=== PATIENT | male | born 1960 | race African-American/Black ===

== ENCOUNTER 2018-08-07 16:13 | Inpatient (IN) | payer MEDICAID ==
[~2018-08-07] VITALS: Ht 162.6 cm; Wt 66.9 kg
[~2018-08-07 16:13] MED LIST: AMBIEN10 MG ORAL; CIPRODEX OTIC7.5 M1 RIGHT EAR; COLACE100 MG ORAL; IBUPROFEN600 MG ORAL; KEFLEX500 MG ORAL; NAPROXEN500 M2 ORAL; NKM; NORCO 5-325 TA1 EACH ORAL; PEPCID20 MG ORAL; TYLENOL EXTRA500 MG ORAL; TYLENOL650 MG/20. ORAL; VENTOLIN HFA18 GM INH
[2018-08-07 16:30] VITALS: BP 139/78
--- NOTE | 2018-08-07 16:30 | NUR ---
ED Nurse Note: AMBULATED IN TO ER DUE TO SOB X3 DAYS. LABOR BREATHING NOTED BUT 100% IN RA. A/OX4. DENIES CP.
[2018-08-07] MEDS ORDERED: Solu-MEDROL 125mg Inj IVP ONE (16:45)
[2018-08-07] MEDS ORDERED: Ipratropium 0.02% Inh Soln 2.5ml UD HHN ONE (16:45)
[2018-08-07] MEDS ORDERED: Acetaminophen 500mg (ES) tab ORAL ONE (16:45)
[2018-08-07] MEDS ORDERED: UNOBMED (16:55)
--- NOTE | 2018-08-07 16:56 | Emergency Room Report ---
History of Present Illness General Chief Complaint: Dyspnea/Respdistress Source: Patient Present Illness HPI Patient presents with severe dyspnea and wheezing. He's felt feverish but not documented any fever. He still smokes cigarettes. He's not producing any colored phlegm at this time. He's complaining about pain in his legs that he can't walk at this time also. He gets easily out of breath less than a half a block. He's most using an inhaler but doesn't have one at this time. This is one of the worst attack he's ever had. Never intubated. He denies having an inhaler. He is just one in the past. No chest pain, palpitations, nausea, vomiting, diarrhea, dysuria, abdominal pain , depression, visual changes, headache. Residual numbness after hernia surgery. Allergies: Coded Allergies: IBUPROFEN (Unverified Allergy, 07/17/13) Patient History Past Medical History: see triage record Past Surgical History: other - hernia Social History: Reports: smoking, drug use Social History Narrative Lives with friends Reviewed Nursing Documentation: PMH: Agreed; PSxH: Agreed Nursing Documentation-PMH Past Medical History: No History, Except For Hx Cardiac Problems: No Hx Hypertension: No Hx Pacemaker: No Hx Asthma: No Hx COPD: Yes Hx Diabetes: No Hx Cancer: No Hx Gastrointestinal Problems: Yes - Ruptured hernia Hx Dialysis: No Hx Neurological Problems: No Hx Cerebrovascular Accident: No Review of Systems All Other Systems: negative except mentioned in HPI Physical Exam Vital Signs Date Time Temp Pulse Resp B/P (MAP) Pulse Ox O2 Delivery O2 Flow Rate FiO2 08/07/18 16:23 98.2 107 16 122/68 100 Room Air Sp02 EP Interpretation: reviewed, normal General Appearance: alert, GCS 15, mild distress Head: normocephalic Eyes: bilateral eye PERRL, bilateral eye EOMI, bilateral eye Scleral Injection ENT: moist mucus membranes Neck: supple Respiratory: wheezing, expiration, inspiration Cardiovascular #1: no edema, tachycardia Cardiovascular #2: 2+ radial (R) Gastrointestinal: normal inspection, normal bowel sounds, non tender, no mass, non-distended Rectal: heme negative stool Musculoskeletal: back normal, gait/station normal, normal range of motion Neurologic: alert, oriented x3, grossly normal Psychiatric: anxious Skin: normal inspection, warm/dry Medical Decision Making Diagnostic Impression: Primary Impression: COPD exacerbation Additional Impressions: Anemia Qualified Codes: D64.9 - Anemia, unspecified Cocaine abuse Pancreatitis Qualified Codes: K85.90 - Acute pancreatitis without necrosis or infection, unspecified Elevated lactic acid level ER Course Patient presents with severe dyspnea. Differential includes asthma, COPD exacerbation, pneumonia, acute myocardial infarction, substance abuse, pulmonary embolus amongst others. Exam is against pulmonary embolus. Evaluation will be with EKG, chest x-ray and labs. Patient be treated with methylprednisolone and breathing treatments. Patient will be given Tylenol for his leg pain. Considerations regarding this included electrolyte imbalance amongst others. EKG without injury. Chest x-ray COPD. Labs significant for anemia. Tox screen positive for cocaine. Initial lactic acid is elevated. Elevated lipase without abdominal pain. Last hemoglobin in 2016 was normal. No evidence of active bleeding. Hemodynamically stable his blood is not ordered. Improved but still with wheezes. Repeat breathing treatments. Patient is ambulatory with a limp of the left leg. Patient admitted to medical floor continued breathing treatments and reevaluation Dr. Barbosa. Laboratory Tests Test 08/07/18 16:45 08/07/18 17:45 08/07/18 17:50 White Blood Count 9.7 K/UL (4.8-10.8) Red Blood Count 3.63 M/UL (4.70-6.10) L Hemoglobin 7.7 G/DL (14.2-18.0) L Hematocrit 27.2 % (42.0-52.0) L Mean Corpuscular Volume 75 FL (80-99) L Mean Corpuscular Hemoglobin 21.3 PG (27.0-31.0) L Mean Corpuscular Hemoglobin Concent 28.4 G/DL (32.0-36.0) L Red Cell Distribution Width 18.8 % (11.6-14.8) H Platelet Count 237 K/UL (150-450) Mean Platelet Volume 4.7 FL (6.5-10.1) L Neutrophils (%) (Auto) % (45.0-75.0) Lymphocytes (%) (Auto) % (20.0-45.0) Monocytes (%) (Auto) % (1.0-10.0) Eosinophils (%) (Auto) % (0.0-3.0) Basophils (%) (Auto) % (0.0-2.0) Differential Total Cells Counted 100 Neutrophils % (Manual) 41 % (45-75) L Lymphocytes % (Manual) 46 % (20-45) H Monocytes % (Manual) 11 % (1-10) H Eosinophils % (Manual) 0 % (0-3) Basophils % (Manual) 2 % (0-2) Band Neutrophils 0 % (0-8) Platelet Estimate Adequate Platelet Morphology Normal Polychromasia 2+ Hypochromasia 3+ Anisocytosis 2+ Microcytosis 1+ Target Cells 1+ Prothrombin Time 10.7 SEC (9.30-11.50) Prothrombin Time INR 1.0 (0.9-1.1) PTT 23 SEC (23-33) Sodium Level 136 MMOL/L (136-145) Potassium Level 3.9 MMOL/L (3.5-5.1) Chloride Level 103 MMOL/L (98-107) Carbon Dioxide Level 23 MMOL/L (21-32) Anion Gap 10 mmol/L (5-15) Blood Urea Nitrogen 6 mg/dL (7-18) L Creatinine 0.9 MG/DL (0.55-1.30) Estimate Glomerular Filtration Rate > 60 mL/min (>60) Glucose Level 92 MG/DL (74-106) Lactic Acid Level 2.10 mmol/L (0.4-2.0) H Pending Calcium Level 8.9 MG/DL (8.5-10.1) Magnesium Level 1.9 MG/DL (1.8-2.4) Total Bilirubin 0.2 MG/DL (0.2-1.0) Aspartate Amino Transferase (AST) 46 U/L (15-37) H Alanine Aminotransferase (ALT) 30 U/L (12-78) Alkaline Phosphatase 71 U/L (46-116) Total Creatine Kinase 276 U/L (26-308) Pro-B-Type Natriuretic Peptide 140 pg/mL (0-125) H Total Protein 8.1 G/DL (6.4-8.2) Albumin 3.5 G/DL (3.4-5.0) Globulin 4.6 g/dL Albumin/Globulin Ratio 0.8 (1.0-2.7) L Lipase 789 U/L (73-393) H Urine Color Pale yellow Urine Appearance Clear Urine pH 6 (4.5-8.0) Urine Specific [place] 1.010 (1.005-1.035) Urine Protein 1+ (NEGATIVE) H Urine Glucose (UA) Negative (NEGATIVE) Urine Ketones Negative (NEGATIVE) Urine Blood Negative (NEGATIVE) Urine Nitrite Negative (NEGATIVE) Urine Bilirubin Negative (NEGATIVE) Urine Urobilinogen Normal MG/DL (0.0-1.0) Urine Leukocyte Esterase Negative (NEGATIVE) Urine RBC 0-2 /HPF (0 - 0) H Urine WBC 0 /HPF (0 - 0) Urine Squamous Epithelial Cells None /LPF (NONE/OCC) Urine Bacteria None /HPF (NONE) Urine Opiates Screen Negative (NEGATIVE) Urine Barbiturates Screen Negative (NEGATIVE) Phencyclidine (PCP) Screen Negative (NEGATIVE) Urine Amphetamines Screen Negative (NEGATIVE) Urine Benzodiazepines Screen Negative (NEGATIVE) Urine Cocaine Screen Positive (NEGATIVE) H Urine Marijuana (THC) Screen Positive (NEGATIVE) H Microbiology Date/Time Source Procedure Growth Status 08/07/18 17:50 Nasal Nares Influenza Types A,B Antigen (MARCO A) - Final Complete EKG Diagnostic Results Rate: tachycardiac Rhythm: NSR ST Segments: no acute changes Rhythm Strip Diag. Results EP Interpretation: yes Rhythm: no PVC's, no ectopy, other - Sinus tachycardia Chest X-Ray Diagnostic Results Chest X-Ray Diagnostic Results : Chest X-Ray Ordered: Yes # of Views/Limited/Complete: 1 View Indication: Shortness of Breath EP Interpretation: Yes Interpretation: no consolidation, no effusion, no pneumothorax, other - nodule R and scarring/COPD Last Vital Signs Date Time Temp Pulse Resp B/P (MAP) Pulse Ox O2 Delivery O2 Flow Rate FiO2 08/08/18 04:05 98.6 80 20 158/94 (115) 97 08/07/18 21:00 Room Air 08/07/18 17:57 21 Status: improved Disposition: ADMITTED INPATIENT Condition: Serious Iker Moffett MD Aug 07, 2018 16:56
[2018-08-07 17:07] LABS: HEMATOCRIT 27.2 % (42.0-52.0); HEMOGLOBIN 7.7 G/DL (14.2-18.0); MEAN CORPUSCULAR VOLUME 75 FL (80-99); PLATELET COUNT 237 K/UL (150-450); RED BLOOD COUNT 3.63 M/UL (4.70-6.10); RED CELL DISTRIBUTION WIDTH 18.8 % (11.6-14.8); WHITE BLOOD COUNT 9.7 K/UL (4.8-10.8)
[2018-08-07] MEDS: Albuterol ud Inhalation HHN SCH ×3 (17:09→17:26)
[2018-08-07 17:18] LABS: ANION GAP 10 mmol/L (5-15); BLOOD UREA NITROGEN 6 mg/dL (7-18); CALCIUM 8.9 MG/DL (8.5-10.1); CARBON DIOXIDE 23 MMOL/L (21-32); CHLORIDE 103 MMOL/L (98-107); CREATININE 0.9 MG/DL (0.55-1.30); POTASSIUM 3.9 MMOL/L (3.5-5.1); SODIUM 136 MMOL/L (136-145)
--- NOTE | 2018-08-07 17:23 | Diagnostic Imaging Report ---
Indication: Shortness of breath Technique: One view of the chest Comparison: 06/14/2015 Findings: There is minimal atelectasis at the left lung base. Old calcified granuloma is seen in the right mid to lower lung No acute infiltrates, effusions, or congestion. Tortuous calcified aorta. Normal heart size. Upper mediastinum unremarkable. Impression: No acute process. Minimal left basilar atelectasis Old granulomatous disease in the right lung
[2018-08-07 17:28] LABS: ALANINE AMINOTRANSFERASE 30 U/L (12-78); ALBUMIN 3.5 G/DL (3.4-5.0); ALBUMIN/GLOBULIN RATIO 0.8 (1.0-2.7); ALKALINE PHOSPHATASE 71 U/L (46-116); ASPARTATE AMINO TRANSFERASE 46 U/L (15-37); BILIRUBIN,TOTAL 0.2 MG/DL (0.2-1.0); CREATINE KINASE 276 U/L (26-308)
--- NOTE | 2018-08-07 17:41 | NUR ---
ED Nurse Note: LACTIC REFLEX SENT DOWN TO THE LAB
[2018-08-07 18:04] LABS: APPEARANCE,URINE CLEAR; BILIRUBIN, URINE NEGATIVE (NEGATIVE); COLOR,URINE PALE YELLOW; GLUCOSE, URINE (UA) NEGATIVE (NEGATIVE); KETONES,URINE NEGATIVE (NEGATIVE); LEUKOCYTE ESTERASE ,URINE NEGATIVE (NEGATIVE); NITRITE,URINE NEGATIVE (NEGATIVE); PH,URINE 6 (4.5-8.0); PROTEIN,URINE 1+ (NEGATIVE); UROBILINOGEN,URINE NORMAL MG/DL (0.0-1.0)
--- NOTE | 2018-08-07 18:18 | NUR ---
ED Nurse Note: per SUSI that pt is not ready to go up yet.
--- NOTE | 2018-08-07 18:30 | NUR ---
ED Nurse Note: PER SUSI, NO BLOOD TRANSFSION FOR HGB 7.[address] MORALES IS AWARE
--- NOTE | 2018-08-07 18:42 | NUR ---
ED Nurse Note: ATTEMPTED TO GIVE TELEPHONE REPORT. PER JIMBO OH FROM [facility], SHE CANNOT TAKE THE REPORT AT THIS TIME.
--- NOTE | 2018-08-07 19:08 | NUR ---
HAND-OFF: Report given to JOHNNY DALY. NO S/S OF DISTRESS.
[2018-08-07] MEDS ORDERED: Nitroglycerin Subl 0.4mg tab SL PRN (19:40)
[2018-08-07] MEDS ORDERED: LORazepam Inj 2mg/ml 1ml IV PRN (19:40)
[2018-08-07] MEDS ORDERED: Albuterol/Ipratropium 3ml neb HHN PRN (19:40)
[2018-08-07] MEDS ORDERED: Promethazine/Codeine 5ml UD ORAL PRN (19:40)
[2018-08-07 20:00] VITALS: BP 136/83
--- NOTE | 2018-08-07 20:00 | NUR ---
NURSE NOTES: Pt received in stable condition. RR even unlabored. Weak and unsteady in gait due to pain radiating from legs downward, "feels like hot coals on my legs". Pt is on room air, IV site asymptomatic, patent, dressing intact. Pt is supine in bed. Bed in lowest position, locked, side rails up x 2. Call light within reach. will continue to monitor.
--- NOTE | 2018-08-07 20:30 | NUR ---
ED Nurse Note: Pt admitted to Med/Surg unit. All belongings taken with patient to floor. Showing no signs of respiratory or cardiac distress. VSS. Report given to oncoming nurse.
[2018-08-07] MEDS: Theophylline ER 100mg ORAL SCH (21:31)
[2018-08-07] MEDS: Heparin 5000 units/ml inj SUBQ SCH (21:33)
[2018-08-07] MEDS: Morphine Sulfate 2mg/ml Inj(IV/IM USE ONLY) IVP PRN (21:37)
[2018-08-07] MEDS: Piperacillin/Tazobactam 3.375 GM in D5W 110 ML IVPB SCH (22:02)
[2018-08-08] VITALS: BP 145/88
[2018-08-08] MEDS: Solu-MEDROL 125mg Inj IV SCH ×3 (00:50→12:42)
--- NOTE | 2018-08-08 01:00 | NUR ---
NURSE NOTES: Chest percussions done. Patient still unable to get sputum culture. Will reassess. Call light is at bedside.
[2018-08-08] MEDS: Morphine Sulfate 2mg/ml Inj(IV/IM USE ONLY) IVP PRN ×3 (01:54→19:43)
[2018-08-08 04:05] VITALS: BP 158/94
[2018-08-08] MEDS: Piperacillin/Tazobactam 3.375 GM in D5W 110 ML IVPB SCH ×3 (06:09→21:33)
--- NOTE | 2018-08-08 07:25 | NUR ---
NURSE NOTES: Report received from outgoing RN, rounds made. Patient sitting in semi-fowlers position in bed. No complains of pain, SOB on RA, NV. LAC heplock intact, site asymptomatic. Bed in lowest position, call light in reach. Will continue to monitor.
--- NOTE | 2018-08-08 07:32 | NUR ---
HAND-OFF: Report given to JOHNNY Aburto .
[2018-08-08 08:00] VITALS: BP 139/83
[2018-08-08] MEDS: Heparin 5000 units/ml inj SUBQ SCH ×2 (09:03→21:00)
[2018-08-08] MEDS: Theophylline ER 100mg ORAL SCH ×2 (09:03→21:22)
[2018-08-08 12:00] VITALS: BP 152/70
--- NOTE | 2018-08-08 13:15 | Consultation ---
History of Present Illness General Date patient seen: Aug 08, 2018 Chief Complaint: Dyspnea/Respdistress Present Illness HPI 58 year old male with hx of smoking, drug abuse, presented to ER with severe dyspnea and wheezing. He's felt feverish but not documented any fever. He still smokes cigarettes. He's complaining about pain in his legs that he can' t walk at this time also. Allergies: Coded Allergies: IBUPROFEN (Unverified Allergy, 07/17/13) Medication History Scheduled Ciprofloxacin Hcl/Dexameth (Ciprodex Otic Suspension), 5 DROP RIGHT EAR TWICE A DAY No Known Medications* (NKM - No Known Medications*), 0 ., (Reported) Scheduled PRN Acetaminophen* (Tylenol Extra Strength*), 500 MG ORAL Q6H PRN for Mild Pain/ Temp > 100.5 Miscellaneous Medications Unable to Obtain Medications (Unable To Obtain Meds), (Reported) Patient History Healthcare decision maker Resuscitation status Full Code Advanced Directive on File No Past Medical/Surgical History Past Medical/Surgical History: (1) Pancreatitis (2) Cocaine abuse Review of Systems All Other Systems: negative except mentioned in HPI Physical Exam General Appearance: cachetic Lines, tubes and drains: peripheral HEENT: normocephalic, atraumatic Neck: non-tender, normal inspection Respiratory/Chest: rhonchi - left, rhonchi - right Cardiovascular/Chest: normal peripheral pulses, normal rate Abdomen: normal bowel sounds Genitourinary/Rectal: normal genital exam Skin Exam: normal pigmentation Neurologic: studio owner II-XII grossly normal Last 24 Hour Vital Signs Date Time Temp Pulse Resp B/P (MAP) Pulse Ox O2 Delivery O2 Flow Rate FiO2 08/08/18 09:00 Room Air 08/08/18 08:43 94 16 Room Air 08/08/18 08:00 98.8 92 19 139/83 (101) 98 08/08/18 04:05 98.6 80 20 158/94 (115) 97 08/08/18 01:16 98.2 70 20 133/79 97 08/08/18 00:00 99.0 100 20 145/88 (107) 100 08/07/18 21:00 Room Air 08/07/18 20:00 98.3 100 20 136/83 (100) 100 08/07/18 17:57 102 20 100 Room Air 21 08/07/18 17:33 98.3 08/07/18 17:28 80 20 97 Room Air 21 08/07/18 17:14 85 22 95 Room Air 21 08/07/18 16:30 98.2 100 20 139/78 100 Room Air 08/07/18 16:30 100 16 Room Air 08/07/18 16:23 98.2 107 16 122/68 100 Room Air Intake and Output 08/07/18 08/08/18 19:00 07:00 Intake Total 1000 ml 110.0 ml Output Total 500 ml Balance 1000 ml -390.0 ml Intake IV Total 1000 ml 110.0 ml Output Urine Total 500 ml # Voids 2 Laboratory Tests Test 08/07/18 16:45 08/07/18 17:45 08/07/18 17:50 White Blood Count 9.7 K/UL (4.8-10.8) Red Blood Count 3.63 M/UL (4.70-6.10) L Hemoglobin 7.7 G/DL (14.2-18.0) L Hematocrit 27.2 % (42.0-52.0) L Mean Corpuscular Volume 75 FL (80-99) L Mean Corpuscular Hemoglobin 21.3 PG (27.0-31.0) L Mean Corpuscular Hemoglobin Concent 28.4 G/DL (32.0-36.0) L Red Cell Distribution Width 18.8 % (11.6-14.8) H Platelet Count 237 K/UL (150-450) Mean Platelet Volume 4.7 FL (6.5-10.1) L Neutrophils (%) (Auto) % (45.0-75.0) Lymphocytes (%) (Auto) % (20.0-45.0) Monocytes (%) (Auto) % (1.0-10.0) Eosinophils (%) (Auto) % (0.0-3.0) Basophils (%) (Auto) % (0.0-2.0) Differential Total Cells Counted 100 Neutrophils % (Manual) 41 % (45-75) L Lymphocytes % (Manual) 46 % (20-45) H Monocytes % (Manual) 11 % (1-10) H Eosinophils % (Manual) 0 % (0-3) Basophils % (Manual) 2 % (0-2) Band Neutrophils 0 % (0-8) Platelet Estimate Adequate Platelet Morphology Normal Polychromasia 2+ Hypochromasia 3+ Anisocytosis 2+ Microcytosis 1+ Target Cells 1+ Prothrombin Time 10.7 SEC (9.30-11.50) Prothromb Time International Ratio 1.0 (0.9-1.1) Activated Partial Thromboplast Time 23 SEC (23-33) Sodium Level 136 MMOL/L (136-145) Potassium Level 3.9 MMOL/L (3.5-5.1) Chloride Level 103 MMOL/L (98-107) Carbon Dioxide Level 23 MMOL/L (21-32) Anion Gap 10 mmol/L (5-15) Blood Urea Nitrogen 6 mg/dL (7-18) L Creatinine 0.9 MG/DL (0.55-1.30) Estimat Glomerular Filtration Rate > 60 mL/min (>60) Glucose Level 92 MG/DL (74-106) Lactic Acid Level 2.10 mmol/L (0.4-2.0) H 1.60 mmol/L (0.66-2.22) Calcium Level 8.9 MG/DL (8.5-10.1) Magnesium Level 1.9 MG/DL (1.8-2.4) Total Bilirubin 0.2 MG/DL (0.2-1.0) Aspartate Amino Transf (AST/SGOT) 46 U/L (15-37) H Alanine Aminotransferase (ALT/SGPT) 30 U/L (12-78) Alkaline Phosphatase 71 U/L (46-116) Total Creatine Kinase 276 U/L (26-308) Pro-B-Type Natriuretic Peptide 140 pg/mL (0-125) H Total Protein 8.1 G/DL (6.4-8.2) Albumin 3.5 G/DL (3.4-5.0) Globulin 4.6 g/dL Albumin/Globulin Ratio 0.8 (1.0-2.7) L Lipase 789 U/L (73-393) H Urine Color Pale yellow Urine Appearance Clear Urine pH 6 (4.5-8.0) Urine Specific [place] 1.010 (1.005-1.035) Urine Protein 1+ (NEGATIVE) H Urine Glucose (UA) Negative (NEGATIVE) Urine Ketones Negative (NEGATIVE) Urine Blood Negative (NEGATIVE) Urine Nitrite Negative (NEGATIVE) Urine Bilirubin Negative (NEGATIVE) Urine Urobilinogen Normal MG/DL (0.0-1.0) Urine Leukocyte Esterase Negative (NEGATIVE) Urine RBC 0-2 /HPF (0 - 0) H Urine WBC 0 /HPF (0 - 0) Urine Squamous Epithelial Cells None /LPF (NONE/OCC) Urine Bacteria None /HPF (NONE) Urine Opiates Screen Negative (NEGATIVE) Urine Barbiturates Screen Negative (NEGATIVE) Phencyclidine (PCP) Screen Negative (NEGATIVE) Urine Amphetamines Screen Negative (NEGATIVE) Urine Benzodiazepines Screen Negative (NEGATIVE) Urine Cocaine Screen Positive (NEGATIVE) H Urine Marijuana (THC) Screen Positive (NEGATIVE) H Microbiology Date/Time Source Procedure Growth Status 08/07/18 17:50 Nasal Nares Influenza Types A,B Antigen (MARCO A) - Final Complete Height (Feet): 5 Height (Inches): 4.00 Weight (Pounds): 147 Medications Current Medications Medications (Trade) Dose Ordered Sig/Valarie Route PRN Reason Start Time Stop Time Status Last Admin Dose Admin Albuterol/ Ipratropium (Albuterol/ Ipratropium) 3 ml Q4H PRN HHN dyspnea 08/07/18 19:40 08/12/18 19:39 Dextrose (Dextrose 50%) 25 ml Q30M PRN IV Hypoglycemia 08/07/18 19:41 09/06/18 19:40 Dextrose (Dextrose 50%) 50 ml Q30M PRN IV Hypoglycemia 08/07/18 19:41 09/06/18 19:40 Heparin Sodium (Porcine) (Heparin 5000 units/ml) 5,000 units EVERY 12 HOURS SUBQ 08/07/18 21:00 09/06/18 20:59 08/08/18 09:03 Lorazepam (Ativan 2mg/ml 1ml) 0.5 mg Q4H PRN IV For Anxiety 08/07/18 19:40 08/14/18 19:39 Methylprednisolone Sodium Succinate (Solu-MEDROL) 60 mg EVERY 6 HOURS IV 08/08/18 00:00 09/07/18 00:00 08/08/18 12:42 Morphine Sulfate (Morphine Sulfate) 2 mg Q4H PRN IVP severe pain 7-10 08/07/18 19:42 08/14/18 19:41 08/08/18 09:13 Nitroglycerin (Ntg) 0.4 mg Q5M X 3 DOSES PRN SL Prn Chest Pain 08/07/18 19:40 09/06/18 19:39 Ondansetron HCl (Zofran) 4 mg Q6H PRN IVP Nausea & Vomiting 08/07/18 19:40 09/06/18 19:39 Piperacillin Sod/ Tazobactam Sod 3.375 gm/Dextrose 110 ml @ 27.5 mls/hr EVERY 8 HOURS IVPB 08/07/18 21:00 08/14/18 20:59 08/08/18 06:09 Promethazine HCl/ Codeine (Phenergan with Codeine) 5 ml Q6H PRN ORAL cough 08/07/18 19:40 09/06/18 19:39 Temazepam (Restoril) 15 mg HSPRN PRN ORAL Insomnia 08/07/18 21:00 08/14/18 20:59 Theophylline ([place]) 100 mg EVERY 12 HOURS ORAL 08/07/18 21:00 09/06/18 20:59 08/08/18 09:03 Assessment/Plan Problem List: (1) Acute bronchitis ICD Codes: J20.9 - Acute bronchitis, unspecified SNOMED: 46249713 (2) COPD exacerbation ICD Codes: J44.1 - Chronic obstructive pulmonary disease with (acute) exacerbation SNOMED: 570191227 (3) Anemia ICD Codes: D64.9 - Anemia, unspecified SNOMED: 353658493 Qualifiers: Qualified Codes: D64.9 - Anemia, unspecified (4) Cocaine abuse ICD Codes: F14.10 - Cocaine abuse, uncomplicated SNOMED: 75265215 Assessment/Plan respiratory treat titrate fio2 iv steroids iv fluids check electrolytes social service Amado Baxter MD Aug 08, 2018 13:15
--- NOTE | 2018-08-08 13:30 | NUR ---
CASE MANAGEMENT:REVIEW 58 YR OLD MALE FROM HOME SOB SI: COPD EXACERBATION. ANEMIA. PANCREATITIS 98.3 107 16 122/68 100% ON RA H/H-7.7/27.2 LACTIC ACID+2.10 LIPASE+789 URINE(+) COCAINE AND THC IS: DUONEB HHN X3 IV SOLUMEDROL 1L NS BOLUS CXR : MED/SURG STATUS INTERQUAL CRITERIA MET
[2018-08-08 14:36] LABS: HEMATOCRIT 31.2 % (42.0-52.0); HEMOGLOBIN 8.8 G/DL (14.2-18.0); MEAN CORPUSCULAR VOLUME 75 FL (80-99); PLATELET COUNT 263 K/UL (150-450); RED BLOOD COUNT 4.15 M/UL (4.70-6.10); RED CELL DISTRIBUTION WIDTH 19.1 % (11.6-14.8); WHITE BLOOD COUNT 12.3 K/UL (4.8-10.8)
[2018-08-08 14:48] LABS: LACTATE DEHYDROGENASE 203 U/L (81-234)
[2018-08-08 15:15] LABS: % IRON SATURATION 4 % (15-50); IRON 22 ug/dL (50-175); TOTAL IRON BINDING CAPACITY 566 ug/dL (250-450)
[2018-08-08 16:00] VITALS: BP 158/78
--- NOTE | 2018-08-08 17:57 | History & Physical ---
History and Physical History & Physicial Forest Barbosa MD Aug 08, 2018 17:57
--- NOTE | 2018-08-08 19:10 | NUR ---
NURSE NOTES: Sputum culture obtained and sent to lab.
--- NOTE | 2018-08-08 19:25 | NUR ---
HAND-OFF: Report given to Rd Ness RN.
--- NOTE | 2018-08-08 19:40 | NUR ---
NURSE NOTES: Received report from JOHNNY Aburto. Received pt lying in bed, AOX4, c/o L shoulder pain 03/05, denies radiation, will medicate for pain. Pt denies SOB, no distress noted. IV saline lock L FA patent and intact. Bed in lowest position and locked, side rails up x 2, call light within reach. Will continue to monitor.
[2018-08-08 20:00] VITALS: BP 150/79
[2018-08-08] MEDS: Iron Sucrose 100 MG in NS 55 ML IV SCH (20:14)
--- NOTE | 2018-08-08 21:45 | History and Physical Report ---
DATE OF ADMISSION: 08/07/2018 CHIEF COMPLAINT: Shortness of breath. HISTORY OF PRESENT ILLNESS: This is a 58-year-old gentleman with past medical history significant for chronic smoker, history of the right hernia surgery x5, as well as left ankle surgery, who has presented to the hospital complaining about shortness of breath and wheezing and feeling fevers. The patient shortly after initial evaluation in the emergency, was admitted to the hospital with the possible acute chronic obstructive pulmonary disease exacerbation throughout the hospital course and bronchitis. PAST MEDICAL HISTORY AND PAST SURGICAL HISTORY: As above. History of chronic obstructive pulmonary disease, right inguinal hernia repair x5, left ankle surgery. MEDICATIONS AT HOME: Ibuprofen. SOCIAL HISTORY: The patient currently smokes 2 to 3 cigarettes a day. Cocaine abuse. Occasional marijuana. FAMILY HISTORY: Noncontributory. REVIEW OF SYSTEMS: Mostly as above. Denies any dysuria, frequency, or hematuria. Denies any bright red blood per rectum. Denies any loss of consciousness. Denies any fall or head trauma. PHYSICAL EXAMINATION: VITAL SIGNS: On admission, temperature is 98.2, pulse of 107, respirations 16, and blood pressure 122/68. GENERAL: The patient is awake and responsive, no acute distress. HEAD AND NECK: Pupils are reactive to light. Extraocular movements intact. NECK: Supple. No JVD. LUNGS: Good air entry. No wheezes or rales. Decreased in the bases. HEART: Reveals S1, S2. Regular rhythm. No gallops. ABDOMEN: Soft, nondistended, and nontender. Positive bowel sounds. EXTREMITIES: No cyanosis, clubbing, or edema. NEUROLOGIC: Cranial nerves II through XII grossly intact. Motor is 5/5 in all extremities. Gait is intact. RECTAL AND : Refused and deferred. PSYCHIATRIC: Mood and affect is intact. LABORATORY AND DIAGNOSTIC DATA: On admission WBC of 9.7, hemoglobin 7.7, hematocrit 27, and platelets is 237,000. Sodium 136, potassium 3.9, chloride 103, bicarbonate 23, BUN 6, and creatinine 0.9. Iron is 22, TIBC is 566, iron saturation is 4. AST of 46 and ALT of 30. ProBNP of 140. Lipase is 789. Vitamin B12 is 371. Folic acid is 13. PT 10.7. INR is 1.0. PTT of 23. Urinalysis, +1 protein, 0 to 2 rbc. Urine drug screen positive for cocaine as well as marijuana. Chest x-ray, no acute process, minimal left basilar atelectasis, old granulomatous disease in the right lung. ASSESSMENT: 1. Acute chronic obstructive pulmonary disease exacerbation. 2. Anemia, most likely iron deficiency anemia. 3. Elevated lipase, possibly due to acute pancreatitis. 4. Chronic smoker. 5. Substance abuse. Cocaine abuse. PLAN: 1. Admit the patient to medical/surgical. 2. We will follow up laboratory. 3. Nebulizer treatment. 4. Broad-spectrum antibiotics with Zosyn. 5. Start the patient on Venofer intravenous. 6. Follow up with stool study. 7. Code status is Full Code. 8. DVT prophylaxis with heparin subcutaneous. 9. Follow up with Dr. Baxter, Pulmonary Critical Care consultation. Forest Barbosa M.D. DR: ZOHAIB JOB#: [id number] CC:
[2018-08-09] VITALS: BP 116/76
[2018-08-09 04:52] VITALS: BP 116/81
[2018-08-09] MEDS: Piperacillin/Tazobactam 3.375 GM in D5W 110 ML IVPB SCH ×2 (05:02→13:25)
[2018-08-09] MEDS: Morphine Sulfate 2mg/ml Inj(IV/IM USE ONLY) IVP PRN ×3 (05:37→19:06)
--- NOTE | 2018-08-09 05:44 | NUR ---
NURSE NOTES: Received report from Rd RN, pt s/p COPD exacerbation. On RA, no SOB, no acute distress, no c/o pain. LAC IV intact, patent running Zosyn. Bed in lowest position, locked, alarms on. Call light in reach. Will collect ob stool x2.
--- NOTE | 2018-08-09 05:46 | NUR ---
HAND-OFF: Report given to JOHNNY Sanabria. Pt in stable condition.
[2018-08-09 07:10] LABS: BASOPHILS % (AUTO) 0.1 % (0.0-2.0); HEMATOCRIT 30.5 % (42.0-52.0); HEMOGLOBIN 8.7 G/DL (14.2-18.0); LYMPHOCYTES % (AUTO) 8.2 % (20.0-45.0); MEAN CORPUSCULAR VOLUME 74 FL (80-99); MONOCYTES % (AUTO) 11.7 % (1.0-10.0); PLATELET COUNT 259 K/UL (150-450); RED BLOOD COUNT 4.11 M/UL (4.70-6.10); RED CELL DISTRIBUTION WIDTH 18.8 % (11.6-14.8); WHITE BLOOD COUNT 15.3 K/UL (4.8-10.8)
--- NOTE | 2018-08-09 07:21 | NUR ---
NURSE NOTES: Received report from JOHNNY Ramos. Rounding done with outgoing nurse. No respiratory distress noted. c/o pain 9/10 and pain medicine was given by night nurse. Questions answered. Bed in lowest position, call light within reach. Will continue to monitor.
[2018-08-09 07:44] LABS: ALANINE AMINOTRANSFERASE 28 U/L (12-78); ALBUMIN 3.4 G/DL (3.4-5.0); ALBUMIN/GLOBULIN RATIO 0.7 (1.0-2.7); ALKALINE PHOSPHATASE 55 U/L (46-116); ANION GAP 8 mmol/L (5-15); ASPARTATE AMINO TRANSFERASE 35 U/L (15-37); BILIRUBIN,TOTAL 0.4 MG/DL (0.2-1.0); BLOOD UREA NITROGEN 11 mg/dL (7-18); CALCIUM 9.4 MG/DL (8.5-10.1); CARBON DIOXIDE 28 MMOL/L (21-32); CHLORIDE 100 MMOL/L (98-107); PHOSPHORUS 3.2 MG/DL (2.5-4.9); POTASSIUM 3.4 MMOL/L (3.5-5.1); SODIUM 136 MMOL/L (136-145)
--- NOTE | 2018-08-09 07:44 | NUR ---
HAND-OFF: Report given to Lindsey Marinelli RN.
[2018-08-09 08:00] VITALS: BP 108/72
[2018-08-09] MEDS: Theophylline ER 100mg ORAL SCH ×2 (08:48→21:13)
[2018-08-09] MEDS: Heparin 5000 units/ml inj SUBQ SCH ×2 (08:50→21:15)
[2018-08-09] MEDS ORDERED: Solu-MEDROL 125mg Inj IV SCH (09:00)
[2018-08-09 12:00] VITALS: BP 133/78
--- NOTE | 2018-08-09 14:10 | NUR ---
NURSE NOTES: K+ 3.[address] Barbosa was notified and no new order.
--- NOTE | 2018-08-09 14:29 | Internal Med Progress Note ---
Subjective Physician Name Forest Barbosa Attending Physician Forest Barbosa MD Current Medications Medications (Trade) Dose Ordered Sig/Valarie Route PRN Reason Start Time Stop Time Status Last Admin Dose Admin Albuterol/ Ipratropium (Albuterol/ Ipratropium) 3 ml Q4H PRN HHN dyspnea 08/07/18 19:40 08/12/18 19:39 Dextrose (Dextrose 50%) 25 ml Q30M PRN IV Hypoglycemia 08/07/18 19:41 09/06/18 19:40 Dextrose (Dextrose 50%) 50 ml Q30M PRN IV Hypoglycemia 08/07/18 19:41 09/06/18 19:40 Heparin Sodium (Porcine) (Heparin 5000 units/ml) 5,000 units EVERY 12 HOURS SUBQ 08/07/18 21:00 09/06/18 20:59 08/09/18 08:50 Iron Sucrose 100 mg/Sodium Chloride 60 ml @ 240 mls/hr BEDTIME IV 08/08/18 21:00 08/12/18 21:14 08/08/18 20:14 Lorazepam (Ativan 2mg/ml 1ml) 0.5 mg Q4H PRN IV For Anxiety 08/07/18 19:40 08/14/18 19:39 Methylprednisolone Sodium Succinate (Solu-MEDROL) 60 mg DAILY IV 08/09/18 09:00 09/07/18 00:00 08/09/18 08:48 Morphine Sulfate (Morphine Sulfate) 2 mg Q4H PRN IVP severe pain 7-10 08/07/18 19:42 08/14/18 19:41 08/09/18 13:26 Nitroglycerin (Ntg) 0.4 mg Q5M X 3 DOSES PRN SL Prn Chest Pain 08/07/18 19:40 09/06/18 19:39 Ondansetron HCl (Zofran) 4 mg Q6H PRN IVP Nausea & Vomiting 08/07/18 19:40 09/06/18 19:39 Piperacillin Sod/ Tazobactam Sod 3.375 gm/Dextrose 110 ml @ 27.5 mls/hr EVERY 8 HOURS IVPB 08/07/18 21:00 08/14/18 20:59 08/09/18 13:25 Promethazine HCl/ Codeine (Phenergan with Codeine) 5 ml Q6H PRN ORAL cough 08/07/18 19:40 09/06/18 19:39 Temazepam (Restoril) 15 mg HSPRN PRN ORAL Insomnia 08/07/18 21:00 08/14/18 20:59 Theophylline (Devonte-Dur) 100 mg EVERY 12 HOURS ORAL 08/07/18 21:00 09/06/18 20:59 08/09/18 08:48 Allergies: Coded Allergies: IBUPROFEN (Unverified Allergy, 07/17/13) Subjective awake, alert, responsive, NAD, Less SOB, No CP, WBC: 15.3 Objective Last Vital Signs Date Time Temp Pulse Resp B/P (MAP) Pulse Ox O2 Delivery O2 Flow Rate FiO2 08/09/18 12:00 97.3 80 21 133/78 (96) 95 08/09/18 09:00 Room Air 08/09/18 07:10 21 Laboratory Tests Test 08/09/18 05:35 White Blood Count 15.3 K/UL (4.8-10.8) H Red Blood Count 4.11 M/UL (4.70-6.10) L Hemoglobin 8.7 G/DL (14.2-18.0) L Hematocrit 30.5 % (42.0-52.0) L Mean Corpuscular Volume 74 FL (80-99) L Mean Corpuscular Hemoglobin 21.3 PG (27.0-31.0) L Mean Corpuscular Hemoglobin Concent 28.7 G/DL (32.0-36.0) L Red Cell Distribution Width 18.8 % (11.6-14.8) H Platelet Count 259 K/UL (150-450) Mean Platelet Volume 6.1 FL (6.5-10.1) L Neutrophils (%) (Auto) 80.0 % (45.0-75.0) H Lymphocytes (%) (Auto) 8.2 % (20.0-45.0) L Monocytes (%) (Auto) 11.7 % (1.0-10.0) H Eosinophils (%) (Auto) 0.0 % (0.0-3.0) Basophils (%) (Auto) 0.1 % (0.0-2.0) Sodium Level 136 MMOL/L (136-145) Potassium Level 3.4 MMOL/L (3.5-5.1) L Chloride Level 100 MMOL/L (98-107) Carbon Dioxide Level 28 MMOL/L (21-32) Anion Gap 8 mmol/L (5-15) Blood Urea Nitrogen 11 mg/dL (7-18) Creatinine 1.0 MG/DL (0.55-1.30) Estimat Glomerular Filtration Rate > 60 mL/min (>60) Glucose Level 101 MG/DL (74-106) Calcium Level 9.4 MG/DL (8.5-10.1) Phosphorus Level 3.2 MG/DL (2.5-4.9) Magnesium Level 2.0 MG/DL (1.8-2.4) Total Bilirubin 0.4 MG/DL (0.2-1.0) Aspartate Amino Transf (AST/SGOT) 35 U/L (15-37) Alanine Aminotransferase (ALT/SGPT) 28 U/L (12-78) Alkaline Phosphatase 55 U/L (46-116) Total Protein 8.0 G/DL (6.4-8.2) Albumin 3.4 G/DL (3.4-5.0) Globulin 4.6 g/dL Albumin/Globulin Ratio 0.7 (1.0-2.7) L Microbiology Date/Time Source Procedure Growth Status 08/07/18 17:50 Nasal Nares Influenza Types A,B Antigen (MARCO A) - Final Complete Intake and Output 08/08/18 08/09/18 19:00 07:00 Intake Total 2000 ml 797.5 ml Balance 2000 ml 797.5 ml Intake Oral 2000 ml 600 ml IV Total 197.5 ml # Voids 4 2 Objective General: No acute distress, awake and alert HEENT: NCAT, sclera anicteric, PERRL, EOMI. Neck: Supple, no significant jugular venous distention, Lungs: Good inspiratory effort, decrease air at bases, no Wheeze or Rales. Heart: Regular rate and rhythm, normal S1/S2, no murmurs/gallops Abdomen: soft, nontender, nondistended. Normoactive bowel sounds. / Rectal: Refused and deferred. Extremities: No Cyanosis , clubbing or edema. Neuro: A&O x 3, Able to move all extremities Skin: warm, no rashes or lesions Psych: Normal mood and affect Assessment/Plan Assessment/Plan 1. Acute chronic obstructive pulmonary disease exacerbation. 2. Anemia, most likely iron deficiency anemia. 3. Elevated lipase, possibly due to acute pancreatitis. 4. Chronic smoker. 5. Substance abuse. Cocaine abuse. PLAN: 1. Admit the patient to medical/surgical. 2. We will follow up laboratory. 3. Nebulizer treatment. 4. Broad-spectrum antibiotics: DC Zosyn, start Rocephin. 5. on Venofer intravenous. 6. Follow up with stool study. 7. Code status is Full Code. 8. DVT prophylaxis with heparin subcutaneous. 9. Follow up with Dr. Baxter, Pulmonary Critical Care consultation. 10. DC solumedral 11. ID planning for AM. 12. Last Colonoscopy was in July 2017 No mass or cancer, only Polyp as per patient. Forest Barbosa MD Aug 09, 2018 14:29
[2018-08-09] MEDS ORDERED: Miralax 17gm pkt ORAL SCH ×2 (14:30→16:51)
[2018-08-09] MEDS ORDERED: Tubing IV Secondary IV ONE (15:51)
[2018-08-09] MEDS ORDERED: NS 275ml ONE (15:51)
--- NOTE | 2018-08-09 16:06 | Pulmonology Progress Note ---
Assessment/Plan Problems: (1) Acute bronchitis (2) COPD exacerbation (3) Anemia (4) Cocaine abuse Assessment/Plan improving respiratory treatment anemia w/u in process taper steroids stool OB pending Subjective ROS Limited/Unobtainable: No Constitutional: Reports: no symptoms HEENT: Repors: no symptoms Allergies: Coded Allergies: IBUPROFEN (Unverified Allergy, 07/17/13) Objective Last 24 Hour Vital Signs Date Time Temp Pulse Resp B/P (MAP) Pulse Ox O2 Delivery O2 Flow Rate FiO2 08/09/18 12:00 97.3 80 21 133/78 (96) 95 08/09/18 09:00 Room Air 08/09/18 08:00 98.1 96 19 108/72 (84) 98 08/09/18 07:10 96 16 Room Air 21 08/09/18 04:52 98.5 91 18 116/81 (93) 97 08/09/18 00:00 99.0 105 18 116/76 (89) 96 08/08/18 21:00 Room Air 08/08/18 20:00 98.8 77 17 150/79 (102) 97 08/08/18 19:52 94 16 Room Air 21 Intake and Output 08/08/18 08/09/18 19:00 07:00 Intake Total 2000 ml 797.5 ml Balance 2000 ml 797.5 ml Intake Oral 2000 ml 600 ml IV Total 197.5 ml # Voids 4 2 General Appearance: WD/WN HEENT: normocephalic, anicteric Respiratory/Chest: chest wall non-tender, lungs clear, normal breath sounds Cardiovascular: normal peripheral pulses, regular rhythm Abdomen: normal bowel sounds, no organomegaly Genitourinary: normal external genitalia Extremities: no clubbing Skin: no lesions Microbiology Date/Time Source Procedure Growth Status 08/07/18 17:50 Nasal Nares Influenza Types A,B Antigen (MARCO A) - Final Complete Laboratory Tests 08/09/18 05:35: White Blood Count 15.3H, Red Blood Count 4.11L, Hemoglobin 8.7L, Hematocrit 30.5L, Mean Corpuscular Volume 74L, Mean Corpuscular Hemoglobin 21.3L, Mean Corpuscular Hemoglobin Concent 28.7L, Red Cell Distribution Width 18.8H, Platelet Count 259, Mean Platelet Volume 6.1L, Neutrophils (%) (Auto) 80.0H, Lymphocytes (%) (Auto) 8.2L, Monocytes (%) (Auto) 11.7H, Eosinophils (%) (Auto) 0.0, Basophils (%) (Auto) 0.1, Sodium Level 136, Potassium Level 3.4L, Chloride Level 100, Carbon Dioxide Level 28, Anion Gap 8, Blood Urea Nitrogen 11, Creatinine 1.0, Estimat Glomerular Filtration Rate > 60, Glucose Level 101, Calcium Level 9.4, Phosphorus Level 3.2, Magnesium Level 2.0, Total Bilirubin 0.4, Aspartate Amino Transf (AST/SGOT) 35, Alanine Aminotransferase (ALT/SGPT) 28, Alkaline Phosphatase 55, Total Protein 8.0, Albumin 3.4, Globulin 4.6, Albumin/Globulin Ratio 0.7L Current Medications Medications (Trade) Dose Ordered Sig/Valarie Route PRN Reason Start Time Stop Time Status Last Admin Dose Admin Albuterol/ Ipratropium (Albuterol/ Ipratropium) 3 ml Q4H PRN HHN dyspnea 08/07/18 19:40 08/12/18 19:39 Ceftriaxone Sodium 1 gm/ Dextrose 55 ml @ 110 mls/hr Q24H IVPB 08/09/18 16:00 08/16/18 15:59 Dextrose (Dextrose 50%) 25 ml Q30M PRN IV Hypoglycemia 08/07/18 19:41 09/06/18 19:40 Dextrose (Dextrose 50%) 50 ml Q30M PRN IV Hypoglycemia 08/07/18 19:41 09/06/18 19:40 Heparin Sodium (Porcine) (Heparin 5000 units/ml) 5,000 units EVERY 12 HOURS SUBQ 08/07/18 21:00 09/06/18 20:59 08/09/18 08:50 Iron Sucrose 100 mg/Sodium Chloride 60 ml @ 240 mls/hr BEDTIME IV 08/08/18 21:00 08/12/18 21:14 08/08/18 20:14 Lorazepam (Ativan 2mg/ml 1ml) 0.5 mg Q4H PRN IV For Anxiety 08/07/18 19:40 08/14/18 19:39 Morphine Sulfate (Morphine Sulfate) 2 mg Q4H PRN IVP severe pain 7-10 08/07/18 19:42 08/14/18 19:41 08/09/18 13:26 Nitroglycerin (Ntg) 0.4 mg Q5M X 3 DOSES PRN SL Prn Chest Pain 08/07/18 19:40 09/06/18 19:39 Ondansetron HCl (Zofran) 4 mg Q6H PRN IVP Nausea & Vomiting 08/07/18 19:40 09/06/18 19:39 Promethazine HCl/ Codeine (Phenergan with Codeine) 5 ml Q6H PRN ORAL cough 08/07/18 19:40 09/06/18 19:39 Temazepam (Restoril) 15 mg HSPRN PRN ORAL Insomnia 08/07/18 21:00 08/14/18 20:59 Theophylline (Devonte-Dur) 100 mg EVERY 12 HOURS ORAL 08/07/18 21:00 09/06/18 20:59 08/09/18 08:48 Amado Baxter MD Aug 09, 2018 16:06
[2018-08-09 16:13] VITALS: BP 113/54
[2018-08-09] MEDS: cefTRIAXone 1 GM in D5W 55 ML IVPB SCH (16:46)
--- NOTE | 2018-08-09 18:30 | NUR ---
NURSE NOTES: Recommended the patient's family to bring her medication which takes at home. Daughter told me her will bring today.
[2018-08-09 20:00] VITALS: BP 126/81
--- NOTE | 2018-08-09 20:05 | NUR ---
HAND-OFF: Report given to JOHNNY Huff.
[2018-08-09] MEDS: Iron Sucrose 100 MG in NS 55 ML IV SCH (21:13)
--- NOTE | 2018-08-09 22:04 | NUR ---
NURSE NOTES: Patient is in bed, aaox4. No signs of distress. No shortness of breath. IV site intact and patent. Steady gait. Due meds given, needs attended to. Bed low, call light within reach.
[2018-08-10] VITALS: BP 145/86
[2018-08-10] MEDS: Morphine Sulfate 2mg/ml Inj(IV/IM USE ONLY) IVP PRN ×3 (00:45→15:18)
--- NOTE | 2018-08-10 01:00 | NUR ---
NURSE NOTES: OB stool collected
[2018-08-10 04:00] VITALS: BP 129/76
--- NOTE | 2018-08-10 07:54 | NUR ---
HAND-OFF: Report given to JOHNNY Groves. Patient stable.
[2018-08-10 08:00] VITALS: BP 116/67
[2018-08-10] MEDS: Heparin 5000 units/ml inj SUBQ SCH (09:15)
[2018-08-10] MEDS: Theophylline ER 100mg ORAL SCH (09:15)
[2018-08-10 12:00] VITALS: BP 98/60
--- NOTE | 2018-08-10 14:21 | Internal Med Progress Note ---
Subjective Physician Name Forest Barbosa Attending Physician Forest Barbosa MD Current Medications Medications (Trade) Dose Ordered Sig/Valarie Route PRN Reason Start Time Stop Time Status Last Admin Dose Admin Albuterol/ Ipratropium (Albuterol/ Ipratropium) 3 ml Q4H PRN HHN dyspnea 08/07/18 19:40 08/12/18 19:39 Ceftriaxone Sodium 1 gm/ Dextrose 55 ml @ 110 mls/hr Q24H IVPB 08/09/18 16:00 08/16/18 15:59 08/09/18 16:46 Dextrose (Dextrose 50%) 25 ml Q30M PRN IV Hypoglycemia 08/07/18 19:41 09/06/18 19:40 Dextrose (Dextrose 50%) 50 ml Q30M PRN IV Hypoglycemia 08/07/18 19:41 09/06/18 19:40 Heparin Sodium (Porcine) (Heparin 5000 units/ml) 5,000 units EVERY 12 HOURS SUBQ 08/07/18 21:00 09/06/18 20:59 08/10/18 09:15 Iron Sucrose 100 mg/Sodium Chloride 60 ml @ 240 mls/hr BEDTIME IV 08/08/18 21:00 08/12/18 21:14 08/09/18 21:13 Lorazepam (Ativan 2mg/ml 1ml) 0.5 mg Q4H PRN IV For Anxiety 08/07/18 19:40 08/14/18 19:39 Morphine Sulfate (Morphine Sulfate) 2 mg Q4H PRN IVP severe pain 7-10 08/07/18 19:42 08/14/18 19:41 08/10/18 05:09 Nitroglycerin (Ntg) 0.4 mg Q5M X 3 DOSES PRN SL Prn Chest Pain 08/07/18 19:40 09/06/18 19:39 Ondansetron HCl (Zofran) 4 mg Q6H PRN IVP Nausea & Vomiting 08/07/18 19:40 09/06/18 19:39 Promethazine HCl/ Codeine (Phenergan with Codeine) 5 ml Q6H PRN ORAL cough 08/07/18 19:40 09/06/18 19:39 Temazepam (Restoril) 15 mg HSPRN PRN ORAL Insomnia 08/07/18 21:00 08/14/18 20:59 Theophylline ([place]-Dur) 100 mg EVERY 12 HOURS ORAL 08/07/18 21:00 09/06/18 20:59 08/10/18 09:15 Allergies: Coded Allergies: IBUPROFEN (Unverified Allergy, 07/17/13) Subjective awake, alert, responsive, NAD, No SOB, No CP, Objective Last Vital Signs Date Time Temp Pulse Resp B/P (MAP) Pulse Ox O2 Delivery O2 Flow Rate FiO2 08/10/18 09:00 Room Air 08/10/18 08:00 98.2 79 19 116/67 (83) 96 08/10/18 07:35 21 Laboratory Tests Test 08/09/18 16:00 08/10/18 00:55 Stool Occult Blood Pending Pending Microbiology Date/Time Source Procedure Growth Status 08/08/18 20:12 Sputum Gram Stain - Final Resulted 08/08/18 20:12 Sputum Sputum Culture - Preliminary NORMAL UPPER RESPIRATORY RIGO PRESENT Resulted 08/07/18 17:50 Nasal Nares Influenza Types A,B Antigen (MARCO A) - Final Complete Intake and Output 08/09/18 08/10/18 19:00 07:00 Intake Total 1097.5 ml 480 ml Balance 1097.5 ml 480 ml Intake Oral 960 ml 480 ml IV Total 137.5 ml # Voids 2 2 # Bowel Movements 1 Objective General: No acute distress, awake and alert HEENT: NCAT, sclera anicteric, PERRL, EOMI. Neck: Supple, no significant jugular venous distention, Lungs: Good inspiratory effort, decrease air at bases, no Wheeze or Rales. Heart: Regular rate and rhythm, normal S1/S2, no murmurs/gallops Abdomen: soft, nontender, nondistended. Normoactive bowel sounds. / Rectal: Refused and deferred. Extremities: No Cyanosis , clubbing or edema. Neuro: A&O x 3, Able to move all extremities Skin: warm, no rashes or lesions Psych: Normal mood and affect Assessment/Plan Assessment/Plan 1. Acute chronic obstructive pulmonary disease exacerbation. 2. Anemia, most likely iron deficiency anemia. 3. Elevated lipase, possibly due to acute pancreatitis. 4. Chronic smoker. 5. Substance abuse. Cocaine abuse. PLAN: 1. Admit the patient to medical/surgical. 2. We will follow up laboratory. 3. Nebulizer treatment. 4. Broad-spectrum antibiotics: DC Rocephin. 5. on Venofer intravenous. 6. Follow up with stool study. 7. Code status is Full Code. 8. DVT prophylaxis with heparin subcutaneous. 9. Follow up with Dr. Baxter, Pulmonary Critical Care consultation. 10. DC solumedral 11. DC Home today 12. Last Colonoscopy was in July 2017 No mass or cancer, only Polyp as per patient. 13. F/U colonoscopy as out patients. 14. F/U with my office in 1 week. Forest Barbosa MD Aug 10, 2018 14:21
[2018-08-10] MEDS ORDERED: IRON325 M1 PO (14:23)
[2018-08-10] MEDS: cefTRIAXone 1 GM in D5W 55 ML IVPB SCH (15:11)
[2018-08-10 16:00] VITALS: BP 113/73
--- NOTE | 2018-08-10 16:58 | Pulmonology Progress Note ---
Assessment/Plan Problems: (1) Acute bronchitis (2) COPD exacerbation (3) Anemia (4) Cocaine abuse Assessment/Plan improving respiratory treatment anemia w/u in process taper steroids stool OB pending Subjective Allergies: Coded Allergies: IBUPROFEN (Unverified Allergy, 07/17/13) Objective Last 24 Hour Vital Signs Date Time Temp Pulse Resp B/P (MAP) Pulse Ox O2 Delivery O2 Flow Rate FiO2 08/10/18 12:00 98.8 93 19 98/60 (73) 98 08/10/18 09:00 Room Air 08/10/18 08:00 98.2 79 19 116/67 (83) 96 08/10/18 07:35 80 18 Room Air 21 08/10/18 04:00 99.0 81 18 129/76 (93) 96 08/10/18 00:00 99.0 97 18 145/86 (105) 98 08/09/18 21:00 Room Air 08/09/18 20:00 97.4 93 16 126/81 (96) 98 08/09/18 19:00 97 16 Room Air 21 Intake and Output 08/09/18 08/10/18 19:00 07:00 Intake Total 1097.5 ml 480 ml Balance 1097.5 ml 480 ml Intake Oral 960 ml 480 ml IV Total 137.5 ml # Voids 2 2 # Bowel Movements 1 Microbiology Date/Time Source Procedure Growth Status 08/08/18 20:12 Sputum Gram Stain - Final Resulted 08/08/18 20:12 Sputum Sputum Culture - Preliminary NORMAL UPPER RESPIRATORY RIGO PRESENT Resulted 08/07/18 17:50 Nasal Nares Influenza Types A,B Antigen (MARCO A) - Final Complete Laboratory Tests 08/10/18 00:55: Stool Occult Blood [Pending] Current Medications Medications (Trade) Dose Ordered Sig/Valarie Route PRN Reason Start Time Stop Time Status Last Admin Dose Admin Albuterol/ Ipratropium (Albuterol/ Ipratropium) 3 ml Q4H PRN HHN dyspnea 08/07/18 19:40 08/12/18 19:39 Ceftriaxone Sodium 1 gm/ Dextrose 55 ml @ 110 mls/hr Q24H IVPB 08/09/18 16:00 08/16/18 15:59 08/10/18 15:11 Dextrose (Dextrose 50%) 25 ml Q30M PRN IV Hypoglycemia 08/07/18 19:41 09/06/18 19:40 Dextrose (Dextrose 50%) 50 ml Q30M PRN IV Hypoglycemia 08/07/18 19:41 09/06/18 19:40 Heparin Sodium (Porcine) (Heparin 5000 units/ml) 5,000 units EVERY 12 HOURS SUBQ 08/07/18 21:00 09/06/18 20:59 08/10/18 09:15 Iron Sucrose 100 mg/Sodium Chloride 60 ml @ 240 mls/hr BEDTIME IV 08/08/18 21:00 08/12/18 21:14 08/09/18 21:13 Lorazepam (Ativan 2mg/ml 1ml) 0.5 mg Q4H PRN IV For Anxiety 08/07/18 19:40 08/14/18 19:39 Morphine Sulfate (Morphine Sulfate) 2 mg Q4H PRN IVP severe pain 7-10 08/07/18 19:42 08/14/18 19:41 08/10/18 15:18 Nitroglycerin (Ntg) 0.4 mg Q5M X 3 DOSES PRN SL Prn Chest Pain 08/07/18 19:40 09/06/18 19:39 Ondansetron HCl (Zofran) 4 mg Q6H PRN IVP Nausea & Vomiting 08/07/18 19:40 09/06/18 19:39 Promethazine HCl/ Codeine (Phenergan with Codeine) 5 ml Q6H PRN ORAL cough 08/07/18 19:40 09/06/18 19:39 Temazepam (Restoril) 15 mg HSPRN PRN ORAL Insomnia 08/07/18 21:00 08/14/18 20:59 Theophylline (Devonte-Dur) 100 mg EVERY 12 HOURS ORAL 08/07/18 21:00 09/06/18 20:59 08/10/18 09:15 Amado Baxter MD Aug 10, 2018 16:58
[2018-08-10] MEDS ORDERED: TEMAZEPAM15 MG ORAL (18:03)
[2018-08-10] MEDS ORDERED: Tubing IV Secondary IV ONE (18:29)
--- NOTE | 2018-08-10 18:40 | NUR ---
NURSE NOTES: Received order for discharge. discharge instruction and belongings given to patient. IV removed prior to d/c. RN called house sup to request a taxi voucher. RN called taxi to potato picker pt's STIV[employer]. pt left the floor walking with no signs of distress or other issues at this time. I will f/u as needed.
--- NOTE | 2018-08-13 11:21 | Discharge Summary ---
Discharge Summary Discharge Summary _ DATE OF ADMISSION: 08/07/2018 DATE OF DISCHARGE: 08/10/2018 DISCHARGED BY: Dr. Barbosa REASON FOR ADMISSION: 58 years old male with past medical history of chronic obstructive pulmonary disease, right inguinal hernia repair x5, left ankle surgery, chronic smoker, presented to the hospital complaining of shortness of breath, wheezing and subjective fevers. Urine toxicology screen was positive for cocaine and marijuana. Chest x-ray revealed no acute cardiopulmonary pathology. Renal parameters were stable. Lactic acid 2.1. Pro BNP 140. No leukocytosis, hemoglobin 7.7, hematocrit 27.2. MCV 75. Shortly after initial evaluation in emergency department, patient was admitted for COPD exacerbation. CONSULTANTS: pulmonary Dr. Baxter [facility]: Patient admitted Supplemental oxygen provided as needed to keep pulse oximetry above 90%. Pulmonary toilet provided with nebulizing therapy around the clock and as needed. Patient was started on intravenous steroids with gradual tapering down. Patient was started on empiric antibiotic. Sputum culture was negative. Rapid influenza screen test was negative. CXR revealed no acute cardiopulmonary process. Minimal left basilar atelectasis noted. Old granulomatous disease in the right lung. Antitussive provided as needed DVT prophylaxis provided. Patient was counseled on smoking cessation and abstinence from illicit street drugs. Declined nicotine patch. Hemoglobin and hematocrit were closely monitored with goal to keep hemoglobin above 7. Stool for occult blood was positive x2. Anemia workup revealed evidence of iron deficiency anemia. Patient started on Venofer while in the hospital and transitioned to oral Feosol upon discharge. CEA was marginally elevated 4.8. Stable PSA. Stable B12 and folate. No signs of a GI bleeding. Hemoglobin 8.7, hematocrit 30.5 upon discharge. Patient had colonoscopy in July 2017, no mass, no cance, r only polyp as per patient. Patient to follow-up with colonoscopy as outpatient. Patient to follow-up with primary care provider in 1 week. FINAL DIAGNOSES: Acute COPD exacerbation Acute bronchitis Anemia, most likely iron deficiency anemia Chronic smoker Substance abuse/cocaine abuse DISCHARGE MEDICATIONS: See Medication Reconciliation list. DISCHARGE INSTRUCTIONS: Patient was discharged home. Follow up with primary care provider in one week. I have been assigned to dictate discharge summary for this account. I was not involved in the patient's management. Jessy Sanchez NP Aug 13, 2018 11:21
== END 2018-08-10 18:30 | disposition home or self-care (01) | DRG 140 ==
LOC: EMR 17:00 → 3E 17:18 → EDBEDREQ 18:16
DX: J44.0 Chronic obstructive pulmonary disease with (acute) lower respiratory infection (principal); K85.90 Acute pancreatitis without necrosis or infection, unspecified; J20.9 Acute bronchitis, unspecified; D50.9 Iron deficiency anemia, unspecified; F17.200 Nicotine dependence, unspecified, uncomplicated; F14.10 Cocaine abuse, uncomplicated; J44.1 Chronic obstructive pulmonary disease with (acute) exacerbation; Z88.6 Allergy status to analgesic agent
CPT/HCPCS: 36415; 71045; 80053; 80307; 81003; 82270; 82378; 82550; 82607; 82728; 82746; 83540; 83550; 83605; 83615; 83690; 83735; 83880; 84100; 84153; 84154; 85007; 85025; 85044; 85060; 85610; 85651; 85730; 86703; 86710; 86803; 87070; 87205; 93005; 94640; 94664; 96361; 96374; 99284

== ENCOUNTER 2018-10-06 10:56 | Emergency (ER) | payer MEDICAID ==
[~2018-10-06] VITALS: Ht 170.2 cm; Wt 64.9 kg
[~2018-10-06 10:56] MED LIST changes: +IRON325 M1 PO; +TEMAZEPAM15 MG ORAL; +UNOBMED
[2018-10-06] MEDS ORDERED: NKM (11:04)
[2018-10-06 11:13] VITALS: BP 138/89
[2018-10-06] MEDS ORDERED: MUPIROCIN22 GM TOPIC (11:22)
[2018-10-06] MEDS ORDERED: CEPHALEXIN500 MG ORAL (11:22)
[2018-10-06] MEDS ORDERED: NORCO 5-325 TA1 EACH ORAL (11:22)
[2018-10-06] MEDS ORDERED: BACTRIM DS TAB1 EAC1 ORAL (11:22)
--- NOTE | 2018-10-06 11:45 | NUR ---
ER DISCHARGE NOTE: Patient is cleared to be discharged per ERMD, pt is aox4, on room air, with stable vital signs. pt was given dc and prescription instructions, pt was able to verbalize understanding, pt is able to ambulate with steady gait. pt took all belongings.
--- NOTE | 2018-10-06 12:28 | Emergency Room Report ---
History of Present Illness General Chief Complaint: Skin Rash/Abscess Source: Patient Present Illness HPI Patient presents emergency department today complaining of left groin pain and swelling. Patient states that he developed acute onset of swelling over this groin area from a hair that got infected. States that ruptured and there is discharge. Complains of this pain in this area. Denies any penile discharge dysuria urinary frequency. Denies any scrotal pain. No prior episodes of this. No other complaints are noted. Symptoms noted to be moderate. No other modifying factors. No other associated signs and symptoms. No other complaints were noted. Allergies: Coded Allergies: IBUPROFEN (Unverified Allergy, Unknown, 10/06/18) Patient History Past Medical History: COPD Past Surgical History: other - Hernia repair Social History: Reports: smoking Reviewed Nursing Documentation: PMH: Agreed; PSxH: Agreed Nursing Documentation-PMH Past Medical History: No History, Except For Hx Cardiac Problems: No Hx Hypertension: No Hx Pacemaker: No Hx Asthma: No Hx COPD: Yes Hx Diabetes: No Hx Cancer: No Hx Gastrointestinal Problems: Yes - Ruptured hernia, hernia surgical repair Hx Dialysis: No Hx Neurological Problems: No Hx Cerebrovascular Accident: No Review of Systems All Other Systems: negative except mentioned in HPI Physical Exam Vital Signs Date Time Temp Pulse Resp B/P (MAP) Pulse Ox O2 Delivery O2 Flow Rate FiO2 10/06/18 11:00 98.2 95 16 96 Room Air 10/06/18 11:13 138/89 Sp02 EP Interpretation: reviewed, normal General Appearance: normal inspection, well appearing, no apparent distress, alert Head: atraumatic Eyes: bilateral eye normal inspection ENT: normal ENT inspection, hearing grossly normal, normal voice Neck: normal inspection, full range of motion, supple, no bony tend Respiratory: normal inspection, lungs clear, normal breath sounds, no respiratory distress, no retraction, no wheezing Cardiovascular #1: regular rate, rhythm, no edema Gastrointestinal: normal inspection, normal bowel sounds, non tender, soft, no guarding, no hernia Genitourinary: no CVA tenderness Musculoskeletal: normal inspection, back normal, normal range of motion Neurologic: normal inspection, alert, responsive, speech normal Psychiatric: normal inspection, judgement/insight normal, mood/affect normal Skin: other - Granular swelling left perineal area. Consistent with a ruptured abscess. No evidence of fluctuance Medical Decision Making Diagnostic Impression: Primary Impression: Abscess Additional Impression: Cellulitis ER Course Patient presents to the emergency department today complaining of swelling in the left groin. Differential considerations include abscess, cellulitis, lymphadenopathy. Patient's exam is consistent with abscess as ruptured with mild surrounding cellulitis. I feel the patient benefit of antibiotics. Given that there is no evidence of fluctuance I do not feel that patient requires any incision and drainage at this time. Recommend warm soaks. Close follow-up. Patient is advised to follow up with primary doctor in 2-3 days and return the emergency room for any worsening symptoms and as needed. Last Vital Signs Date Time Temp Pulse Resp B/P (MAP) Pulse Ox O2 Delivery O2 Flow Rate FiO2 10/06/18 11:13 98.2 80 16 138/89 96 Room Air Status: unchanged Disposition: HOME, SELF-CARE Condition: Stable Scripts Mupirocin* (MUPIROCIN*) 22 Gm Oint...g. 1 APPLIC TOPIC THREE TIMES A DAY for 10 Days, GM Prov: Sundar Boland MD 10/06/18 Trimethoprim/Sulfamethoxazole 160/800* (BACTRIM DS TABLET*) 1 Each Tablet 1 TAB ORAL Q12H, #14 TAB 0 Refills Prov: Sundar Boland MD 10/06/18 Hydrocodone Bit/Acetaminophen 5-325* (NORCO 5-325*) 1 Each Tablet 1 TAB ORAL Q6H PRN for For Pain, #10 TAB 0 Refills Prov: Sundar Boland MD 10/06/18 Cephalexin* (KEFLEX*) 500 Mg Capsule 500 MG ORAL EVERY 6 HOURS for 7 Days, CAP Prov: Sundar Boland MD 10/06/18 Referrals: Forest Barbosa MD (PCP) Patient Instructions: Abscess, Cellulitis Sundar Boland MD October 06, 2018 12:28
[2018-10-06 12:29] VITALS: BP 138/89
== END 2018-10-06 11:45 | disposition home or self-care (01) ==
LOC: EMR 11:42
DX: L02.214 Cutaneous abscess of groin (principal); L03.314 Cellulitis of groin; Z88.6 Allergy status to analgesic agent; J44.9 Chronic obstructive pulmonary disease, unspecified
CPT/HCPCS: 99282